=== PATIENT | male | born 1940 | race Caucasian/White ===

== ENCOUNTER → 2018-02-08 | Outpatient (REF) ==
[2018-02-08 17:16] LABS: PSA-TOTAL 0.89 ng/mL (0-4)
[2018-02-08 17:29] LABS: THYROID STIMULATING HORMONE 1.7 uIU/mL (0.465-4.680)
== END ==
LOC: ZLAB.WCH 16:25
PROVIDERS: Internal Medicine
DX: Z01.89 Encounter for other specified special examinations (principal)
CPT/HCPCS: G0103

== ENCOUNTER → 2018-09-21 | Outpatient (REF) | LOC: COL.CARD 13:04 | DX: Z01.818 Encounter for other preprocedural examination (principal) ==